=== PATIENT | male | born 1950 | race Caucasian/White ===

== ENCOUNTER → 2016-09-15 | Day surgery (SDC) | payer OTHER ==
[~2016-09-15] MED LIST: ADVIL200 M2 PO; MINOCIN100 M1 PO; OMEPRAZOLE40 M1 PO
--- NOTE | ~2016-09-15 | OR ---
Unit #: [id number] #: [id number] Patient: YUKI DYSON [id number] [address] [address] [id number] MR#: [id number] NAME: YUKI DYSON ROOM: Date of Procedure: 09/15/2016 Admission Date: 09/15/2016 Surgeon: Efe Velez M.D. : 1950 Attending Physician: Efe Velez M.D. Primary Care Physician: Yoel Guillaume M.D. PROCEDURE OPERATIVE NOTE PROCEDURE PERFORMED Colonoscopy with snare polypectomy. INDICATION Average risk for colorectal cancer. MEDICATIONS Monitored anesthesia. POSTOP FINDINGS 1. Cecal polyp about 1 cm long, 5 mm wide, snared and sent for pathology. 2. Transverse colon polyp about 6 mm to 8 mm in size, snared and sent (1) . 3. Rectal polyp 6 mm to 8 mm in size, snared and sent for pathology. 4. Rest of the exam was normal. Good prep. PLAN 1. Follow up on the pathology report. 2. Colonoscopy in 3 years. DESCRIPTION OF PROCEDURE The patient was explained the procedure risks and benefits, along with the risk and benefits of anesthesia. He was brought to the endoscopy room. Propofol anesthesia was given. Rectal exam was done, which was normal. Colonoscope was lubricated and passed up the rectum and advanced under direction vision all the way to the cecum. The cecum was identified by the ileocecal valve and appendiceal orifice. Multiple polyps seen, as described. I retroflexed in the rectum. Internal hemorrhoids seen. Scope was gently pulled out. He tolerated it well. Dictated by... Palmira Hankins/zechariah TD: 09/15/2016 12:11 JOB #: [id number] Unit #: [id number] #: [id number] Patient: YUKI DYSON PROCEDURE OPERATIVE NOTE Page 1 of 1 X Efe Velez MD PROCEDURE OPERATIVE NOTE
== END | disposition home or self-care (01) ==
LOC: COPS 09-08 13:00
DX: Z12.11 Encounter for screening for malignant neoplasm of colon (principal); D12.0 Benign neoplasm of cecum; D12.3 Benign neoplasm of transverse colon; K62.1 Rectal polyp; K64.8 Other hemorrhoids; K21.9 Gastro-esophageal reflux disease without esophagitis; Z79.01 Long term (current) use of anticoagulants; Z79.899 Other long term (current) drug therapy; Z98.890 Other specified postprocedural states
CPT/HCPCS: 88305